=== PATIENT | female | born 1990 | race African-American/Black ===

== ENCOUNTER 2020-08-23 06:46 | Observation (INO) | payer OTHER ==
[~2020-08-23] VITALS: Ht 188 cm; Wt 93.9 kg
[2020-08-23] MEDS ORDERED: PNV11TAB5 PO (07:07)
== END 2020-08-23 08:10 | disposition home or self-care (01) ==
LOC: 8 EST LDRP 06:46
PROVIDERS: ADMIT Obstetrics & Gynecology; ATTEND Obstetrics & Gynecology
DX: O62.9 Abnormality of forces of labor, unspecified (principal); O26.893 Other specified pregnancy related conditions, third trimester; R10.9 Unspecified abdominal pain; Z3A.39 39 weeks gestation of pregnancy
CPT/HCPCS: 59025; G0378; 99281